=== PATIENT | female | born 1985 | race Caucasian/White ===

== ENCOUNTER 2021-01-03 15:07 | Observation (INO) | payer OTHER, SELFPAY ==
--- NOTE | ~2021-01-03 | CT_ITS ---
EXAMINATION: CT abdomen pelvis wo con DATE: 01/03/2021 16:40 INDICATION: Abdominal pain TECHNIQUE: Computed tomography (CT) of the abdomen and pelvis was performed without intravenous contr ast. The dose-length product was 952.89 mGy-cm. Automated exposure control and iterative reconstructi on technique were employed. COMPARISON: None. FINDINGS: Lung bases are unremarkable. Heart size normal. No significant pleural or pericardial effus ion. There is mild left perinephric and proximal periureteral edema. No obstructing stone or mass is identified. No significant hydronephrosis. Bladder is unremarkable. No significant vascular abnormali ty. No lymphadenopathy. The liver, spleen, pancreas, adrenal glands and right kidney are unremarkable. There is a wedge compr ession fracture of T12, likely chronic. IMPRESSION: 1. Mild left perinephric and periureteral edema, suspicious for ascending urinary tract infection/reilly lonephritis. No obstructing stone or mass identified. Reviewed, dictated and finalized at location A. IMPRESSION: 1. Mild left perinephric and periureteral edema, suspicious for ascending urina ry tract infection/pyelonephritis. No obstructing stone or mass identified.
[2021-01-03 15:23] VITALS: BP 142/94; PULSE 126; RESP 20; TEMP 37.5; O2SAT 98
[2021-01-03] MEDS: SODIUM CHLORIDE 0.9% IV 1,000 ML 999 ML IV CONT (15:56)
[2021-01-03] MEDS: KETOROLAC 30 MG/ML VIAL (*BKC) IV PUSH (15:57)
[2021-01-03] MEDS: PANTOPRAZOLE SODIUM IV 40 MG VIAL IV PUSH (15:57)
[2021-01-03] MEDS: ONDANSETRON INJ 4 MG/2 ML VIAL IV PUSH (15:57)
[2021-01-03 15:58] LABS: Add Urine Microscopic? YES; Appearance Urine Clear (Clear); Basophils Absolute Auto 0.07 K/mm3 (0.00-0.10); Basophils Percent Auto 0.4 % (0.0-1.0); Bilirubin Urine Negative (Negative); Blood Urine 3+ (Negative); Color Urine Yellow (Yellow); Eosinophils Absolute Auto 0.01 K/mm3 (0.02-0.50); Eosinophils Percent Auto 0.1 % (1.0-6.0); Glucose Urine UA Negative (Negative); Hematocrit 44.5 % (35.0-49.0); Hemoglobin 15.8 g/dL (12.0-15.0); Immature Granulocyte Absolute 0.13 K/mm3 (0.00-0.00); Immature Granulocyte Percent A 0.7 % (0.0-0.0); Ketones Urine 2+ (Negative); Leukocyte Esterase Ur 1+ (Negative); Lymphocytes Absolute Auto 1.11 K/mm3 (1.10-4.50); Lymphocytes Percent Auto 5.9 % (18.0-42.0); Mean Corpuscular HGB Conc 35.5 g/dL (32.0-36.0); Mean Corpuscular Hemoglobin 32.7 pg (27.0-31.0); Mean Corpuscular Volume 92.1 fL (78.0-102.0); Mean Platelet Volume 11.2 fl (9.2-11.8); Monocytes Absolute Auto 1.68 K/mm3 (0.10-0.90); Neutrophils Absolute Auto 15.7 K/mm3 (1.7-7.2); Neutrophils Percent Auto 83.9 % (50.0-70.0); Nitrate Urine Positive (Negative); Platelet Count Result 168 K/mm3 (150-420); Protein Urine 2+ (Negative); Red Blood Count 4.83 M/mm3 (4.20-5.40); Red Cell Distribution Width 11.2 % (11.6-14.4); Specific Grav Ur 1.025 (1.010-1.020); White Blood Count 18.7 K/mm3 (4.8-10.8)
[2021-01-03 16:18] LABS: WBC Urine >75 /hpf (0-3)
[2021-01-03 16:19] LABS: Bacteria Urine 3+ /hpf; Squamous Epithelial Cell Urine Few /hpf (Few)
[2021-01-03 16:20] LABS: Alanine Aminotransferase 26 U/L (14-59); Albumin Level 3.8 g/dL (3.4-5.0); Alkaline Phosphatase 55 U/L (46-116); Anion Gap 12 mmol/L (8-16); Aspartate Amino Transferase 12 U/L (15-37); Bilirubin,Total 1.6 mg/dL (0.00-1.00); Blood Urea Nitrogen 15 mg/dL (7-18); Calcium 8.7 mg/dL (8.5-10.1); Carbon Dioxide 25 mmol/L (21-32); Chloride 99 mmol/L (98-108); Estimated CRCL calculation 71 ml/min; Estimated Glomerular Filt Rate 55; Glucose 98 mg/dL (70-99); Lipase 63 U/L (73-393); Osmolality Calculated 282 mOsm/kg (285-295); Potassium 3.6 mmol/L (3.5-5.1); Sodium 136 mmol/L (136-145); Total Protein 7.3 g/dL (6.4-8.2)
[2021-01-03 16:22] LABS: Pregnancy On Board Control Positive; Urine Pregnancy Test Negative
[2021-01-03 16:26] LABS: Influenza Control Valid (Valid)
--- NOTE | 2021-01-03 16:45 | ED.ABDPAIN ---
HPI - Abdominal Pain General Chief Complaint: Abdominal Pain Stated Complaint: headache,fever,side pain Source: patient Mode of arrival: ambulatory Limitations: no limitations History of Present Illness HPI narrative: This is a 35-year-old female that presents with abdominal pain, epigastric and flank pain started about a day ago and is having some nausea and vomiting with no dysuria but does have some suprapubic tenderness with hesitancy with no hematuria has low-grade fever and chills with no chest pain no shortness of breath. MD elicited complaint: abdominal pain and flank pain Pertinent past history: none Onset (ago): day(s) Pain Consistency: constant Location: epigastric, L flank and R flank Severity: moderate Pain scale (0-10): 6 Quality: aching Radiation: L flank and R flank Migration to: no migration Exacerbating factors: nothing Relieving factors: nothing Associated symptoms: nausea and vomiting Related Data Home Medications Medication Instructions Recorded Confirmed No Home Medications 01/03/21 01/03/21 Allergies Allergy/AdvReac Type Severity Reaction Status Date / Time acetaminophen [From Vicodin] AdvReac Gastrointestinal Verified 01/03/21 15:27 Upset hydrocodone [From Vicodin] AdvReac Gastrointestinal Verified 01/03/21 15:27 Upset Review of Systems Review of Systems: All systems reviewed & are unremarkable except as noted in HPI and below PMFSH Past Medical History Medical History Patient denies medical problems Exam Const: General: no acute distress and alert Orientation/consciousness: patient oriented x3 HENMT: Head: normal to inspection and contusion Eyes: Conjunctivae: conjunctivae normal Pupils: Equal, round and reactive pupils present Chest: Chest palpation & inspection: normal inspection of the chest Resp: Effort & Inspection: normal respiratory effort Auscultation: clear to auscultation bilaterally Cardio: Rate: regular rate Rhythm: regular rhythm GI: GI Palp: Yes Soft to palpation and Yes Tenderness to palpation present (GI) : General: Yes CVA tenderness Urinary Catheter: Urinary Catheter: patent and draining Back/Spine/Pelvis: Back: CVA tenderness Skin: General skin exam: normal color Rashes: no rashes Neuro: General: patient oriented x3 and moves all extremities Extrem: General: normal to inspection and no pedal edema Psych: Mental Status: mental status grossly normal Affect: normal affect Attitude: cooperative Course Course Emergency Course: labs reviewed with patient does show that she has elevated white count with some urinalysis showing urinary tract infection, CT scan of her abdomen and pelvis reviewed with patient showing some perinephric edema consistent with pyelonephritis. Will give the patient a g of ceftriaxone. disposition admission to [facility] starting Condition guarded Admission diagnosis pyelonephritis Vital Signs Vital signs: Vital Signs Temperature 37.5 C 01/03/21 15:23 Pulse Rate 126 H 01/03/21 15:23 Respiratory Rate 20 01/03/21 15:23 Blood Pressure 142/94 H 01/03/21 15:23 Pulse Oximetry 98 01/03/21 15:23 Temperature 37.5 C 01/03/21 15:23 Pulse Rate 126 H 01/03/21 15:23 Respiratory Rate 20 01/03/21 15:23 Blood Pressure 142/94 H 01/03/21 15:23 Pulse Oximetry 98 01/03/21 15:23 MDM - Abdominal Pain Lab Data Result diagrams: 01/03/21 15:39 01/03/21 15:39 Labs: Lab Results 01/03/21 01/03/21 01/03/21 Range/Units 15:39 15:39 15:39 WBC 18.7 H (4.8-10.8) K/mm3 RBC 4.83 (4.20-5.40) M/mm3 Hgb 15.8 H (12.0-15.0) g/dL Hct 44.5 (35.0-49.0) % MCV 92.1 (78.0-102.0) fL MCH 32.7 H (27.0-31.0) pg MCHC 35.5 (32.0-36.0) g/dL RDW 11.2 L (11.6-14.4) % Plt Count 168 (150-420) K/mm3 MPV 11.2 (9.2-11.8) fl Immature Gran % (Auto) 0.7 H (0
[2021-01-03 16:58] LABS: SARS-CoV-2 RNA PCR Negative (Negative)
[2021-01-03 17:00] VITALS: BP 138/88; PULSE 110; RESP 20; O2SAT 99
[2021-01-03 17:40] VITALS: BP 112/70; PULSE 78; RESP 18; TEMP 36.6; O2SAT 95
[2021-01-03] MEDS: SODIUM CHLORIDE 0.9% IV 1,000 ML 100 ML IV CONT (17:46)
[2021-01-03 18:10] VITALS: BMI 35.5
[2021-01-03 20:00] VITALS: BP 103/67; PULSE 76; RESP 20; TEMP 36.6; O2SAT 98
[2021-01-03] MEDS: KETOROLAC 15 MG/ML VIAL (*BKC) IV PUSH (21:35)
--- NOTE | 2021-01-03 22:15 | PC.NURSE ---
Pain reassessment was completed after Ketoralac 15 mg was given for pain of 6/10. Patient was sleeping comfortably in her bed, with no signs of pain or discomfort. This corresponds to a pain rating of 0/10 on the FLACC scale.
[2021-01-04] VITALS (9 sets, daily range): BP systolic 105–128; BP diastolic 64–88; PULSE 67–83; RESP 17–20; TEMP 36–38.3; O2SAT 95–100
[2021-01-04] MEDS: ONDANSETRON INJ 4 MG/2 ML VIAL IV PUSH ×3 (02:36→20:57)
[2021-01-04] MEDS: SODIUM CHLORIDE 0.9% IV 1,000 ML 100 ML IV CONT ×3 (02:48→23:07)
[2021-01-04] MEDS: IBUPROFEN 600 MG TABLET (04:10)
[2021-01-04 05:21] LABS: Basophils Absolute Auto 0.06 K/mm3 (0.00-0.10); Basophils Percent Auto 0.4 % (0.0-1.0); Eosinophils Absolute Auto 0.02 K/mm3 (0.02-0.50); Eosinophils Percent Auto 0.1 % (1.0-6.0); Hematocrit 37.1 % (35.0-49.0); Hemoglobin 13.1 g/dL (12.0-15.0); Immature Granulocyte Absolute 0.12 K/mm3 (0.00-0.00); Immature Granulocyte Percent A 0.7 % (0.0-0.0); Lymphocytes Absolute Auto 1.01 K/mm3 (1.10-4.50); Lymphocytes Percent Auto 6.2 % (18.0-42.0); Mean Corpuscular HGB Conc 35.3 g/dL (32.0-36.0); Mean Corpuscular Hemoglobin 32.9 pg (27.0-31.0); Mean Corpuscular Volume 93.2 fL (78.0-102.0); Mean Platelet Volume 11.9 fl (9.2-11.8); Monocytes Absolute Auto 1.54 K/mm3 (0.10-0.90); Monocytes Percent Auto 9.5 % (2.0-11.0); Neutrophils Absolute Auto 13.5 K/mm3 (1.7-7.2); Neutrophils Percent Auto 83.1 % (50.0-70.0); Platelet Count Result 124 K/mm3 (150-420); Red Blood Count 3.98 M/mm3 (4.20-5.40); Red Cell Distribution Width 11.2 % (11.6-14.4); White Blood Count 16.2 K/mm3 (4.8-10.8)
[2021-01-04 05:36] LABS: Alanine Aminotransferase 20 U/L (14-59); Albumin Level 2.9 g/dL (3.4-5.0); Alkaline Phosphatase 46 U/L (46-116); Anion Gap 13 mmol/L (8-16); Aspartate Amino Transferase < 10 U/L (15-37); Bilirubin,Total 1.1 mg/dL (0.00-1.00); Blood Urea Nitrogen 14 mg/dL (7-18); Calcium 7.8 mg/dL (8.5-10.1); Carbon Dioxide 23 mmol/L (21-32); Chloride 101 mmol/L (98-108); Estimated CRCL calculation 85 ml/min; Estimated Glomerular Filt Rate > 60; Glucose 107 mg/dL (70-99); Osmolality Calculated 284 mOsm/kg (285-295); Potassium 3.6 mmol/L (3.5-5.1); Sodium 137 mmol/L (136-145); Total Protein 5.9 g/dL (6.4-8.2)
[2021-01-04] MEDS: ACETAMINOPHEN 325 MG TABLET 650 MG PO ×2 (09:48→18:05)
--- NOTE | 2021-01-04 11:41 | PM.IMHP ---
H&P: HPI History of Present Illness Date/Time: 01/04/21 11:41 Christa Hurt is a 35 year old female admitted under Observation for Pyelonephritis. Pt states symptoms started about 1-2 days ago with Nausea and flank pain which has resolved. Pt did have a fever this AM. Pt states she does have a little head ache this AM. She claims her appetite is ok and does not feel like eating this AM. Pt states she is feeling good enough to go home however d/t the 101`F temp this AM we will keep her overnight and likely DC home tomorrow provided no more fevers or condition changes that would warrant keeping her in house longer. <ANA MARIA Dawkins - Last Filed: 01/04/21 12:34> Chief Complaint: Abdominal Pain <ANA MARIA Dawkins - Last Filed: 01/04/21 12:34> Review of Systems Review of Systems: All systems reviewed & are unremarkable except as noted in HPI and below <ANA MARIA Dawkins - Last Filed: 01/04/21 12:34> [facility] Past Medical History Medical History: Medical History Patient denies medical problems <ANA MARIA Dawkins - Last Filed: 01/04/21 12:34> Social History Social History: Social History Smoking status: Never smoker Spiritual care concerns: No <ANA MARIA Dawkins - Last Filed: 01/04/21 12:34> Meds Home Medications and Allergies Home medications: Home Medications Medication Instructions Recorded Confirmed Type No Home Medications 01/03/21 01/03/21 History <ANA MARIA Dawkins - Last Filed: 01/04/21 12:34> Allergies/Adverse reactions: Allergies Allergy/AdvReac Type Severity Reaction Status Date / Time hydrocodone [From Vicodin] AdvReac Gastrointestinal Verified 01/03/21 15:27 Upset <ANA MARIA Dawkins - Last Filed: 01/04/21 12:34> Vital Signs Vital Signs - 24 hr 01/03/21 15:23 01/03/21 17:00 01/03/21 17:40 Temperature 99.5 F 97.8 F Pulse Rate 126 H 110 H 78 Respiratory Rate 20 20 18 Blood Pressure 142/94 H 138/88 112/70 Pulse Oximetry 98 99 95 01/03/21 20:00 01/04/21 00:00 01/04/21 03:55 Temperature 97.8 F 98.3 F 101 F H Pulse Rate 76 83 83 Respiratory Rate 20 20 20 Blood Pressure 103/67 105/64 108/67 Pulse Oximetry 98 95 96 01/04/21 05:52 01/04/21 08:00 Temperature 98.2 F 96.9 F L Pulse Rate 75 Respiratory Rate 17 Blood Pressure 109/81 Pulse Oximetry 100 <ANA MARIA Dawkins - Last Filed: 01/04/21 12:34> Exam Const: General: cooperative, healthy appearing, comfortable, no acute distress, well developed, alert, awake, Physically active and tired appearing <ANA MARIA Dawkins - Last Filed: 01/04/21 12:34> Nutritional Appearance: obese <SEEMA DawkinsC - Last Filed: 01/04/21 12:34> Resp: Effort & Inspection: normal respiratory effort <ANA MARIA Dawkins - Last Filed: 01/04/21 12:34> Auscultation: clear to auscultation bilaterally <ANA MARIA Dawkins - Last Filed: 01/04/21 12:34> Cardio: Jugular venous distension: no JVD <ANA MARIA Dawkins - Last Filed: 01/04/21 12:34> Rate: regular rate <ANA MARIA Dawkins - Last Filed: 01/04/21 12:34> Heart sounds: S1 normal heart sound present and S2 normal heart sound present <ANA MARIA Dawkins - Last Filed: 01/04/21 12:34> GI: GI Palp: Yes Soft to palpation and No Tenderness to palpation present (GI) <ANA MARIA Dawkins - Last Filed: 01/04/21 12:34> Auscultation: normal bowel sounds <ANA MARIA Dawkins - Last Filed: 01/04/21 12:34> Back/Spine/Pelvis: Back: no CVA tenderness and No back tenderness <ANA MARIA Dawkins - Last Filed: 01/04/21 12:34> Skin: General skin exam: normal color and dry skin <ANA MARIA Dawkins - Last Filed: 01/04/21 12:34> Neuro: General: oriented to person, oriented to place, oriented to time and CN's II-XI intact bilaterally (grossly intact) <Maulik Cisneros,
[2021-01-04] MEDS: KETOROLAC 15 MG/ML VIAL (*BKC) IV PUSH ×2 (15:43→22:17)
--- NOTE | 2021-01-04 19:00 | PC.NURSE ---
Completed bedside change of shift report and updated board. Patient stated that she is still feeling lousy , and that she wanted to take a shower, but didn't have the energy. When asked about a bed bath, she stated that she would rather wait and shower tomorrow. Patient stated that she was able to enjoy eating jello for dinner, and that was the first thing that tasted good. Patient was reminded that she could have more jello whenever she wanted. Patient was resting comfortably in bed, with no signs of pain or discomfort.
--- NOTE | 2021-01-04 22:04 | PC.NURSE ---
Patient rounding completed. Patient is sleeping comfortably in bed, with no signs of pain or discomfort.
[2021-01-05] VITALS: BP 114/69; PULSE 78; RESP 18; TEMP 36.6; O2SAT 97
[2021-01-05] MEDS: ACETAMINOPHEN 325 MG TABLET 650 MG PO ×2 (00:39→08:20)
--- NOTE | 2021-01-05 02:00 | PC.NURSE ---
Completed patient rounding. Patient is sleeping comfortably in bed, with no signs of pain or discomfort.
[2021-01-05 04:00] VITALS: BP 120/75; PULSE 70; RESP 18; TEMP 36.3; O2SAT 99
[2021-01-05 05:29] LABS: Hematocrit 35.3 % (35.0-49.0); Hemoglobin 12.5 g/dL (12.0-15.0); Immature Platelet Fraction Pct 5.9 % (1.0-7.0); Mean Corpuscular HGB Conc 35.4 g/dL (32.0-36.0); Mean Corpuscular Hemoglobin 33.1 pg (27.0-31.0); Mean Corpuscular Volume 93.4 fL (78.0-102.0); Mean Platelet Volume 12.1 fl (9.2-11.8); Platelet Count Result 121 K/mm3 (150-420); Red Blood Count 3.78 M/mm3 (4.20-5.40); Red Cell Distribution Width 11.2 % (11.6-14.4); White Blood Count 10.9 K/mm3 (4.8-10.8)
[2021-01-05 05:30] LABS: Anion Gap 12 mmol/L (8-16); Blood Urea Nitrogen 11 mg/dL (7-18); Calcium 7.9 mg/dL (8.5-10.1); Carbon Dioxide 24 mmol/L (21-32); Chloride 104 mmol/L (98-108); Estimated CRCL calculation 86 ml/min; Estimated Glomerular Filt Rate > 60; Glucose 80 mg/dL (70-99); Osmolality Calculated 288 mOsm/kg (285-295); Potassium 3.3 mmol/L (3.5-5.1); Sodium 140 mmol/L (136-145)
--- NOTE | 2021-01-05 06:41 | PC.NURSE ---
Patient asked to take a shower. IV was wrapped, and patient was given towels, washcloths, and body wash. Patient is feeling much better than earlier last night. Headache is gone, nausea is under control.
[2021-01-05 07:35] VITALS: BP 121/67; PULSE 75; RESP 18; TEMP 36.3; O2SAT 98
--- NOTE | 2021-01-05 07:36 | PM.DS ---
DS: Admitting Diagnosis Discharge Date 01/05/2021 Admitting Diagnosis Pyelonephritis DS: Discharge Diagnosis Discharge Diagnosis (1) Pyelonephritis: Code(s): N12 - Tubulo-interstitial nephritis, not specified as acute or chronic Status: Acute Assessment and Plan: IMPRESSION: 1. Mild left perinephric and periureteral edema, suspicious for ascending urinary tract infection/pyelonephritis. No obstructing stone or mass identified. IVF NS 100/h, Rocephin 01/05/2021 Renal function is WNL, will DC home with 3 more days Ab, Pt has no abdominal pain, no flank pain, no dysuria, no back pain (2) Fever: Code(s): R50.9 - Fever, unspecified Status: Acute Assessment and Plan: Tylenol or Motrin, Fever was 101`F now 96.9`F 01/05/2021 No fever over the last 24`s DS: Summary Hospital Course Hospital Course: Pt received 3 doses of Rocephin, her appetite has returned and states she is ready for a burger after DC to home, no UTI symptoms. Time Spent with Patient Time attestation: Total time spent providing and/or coordinating discharge services: < 30 minutes Exam Const: General: cooperative, healthy appearing, comfortable, no acute distress, well developed, alert, awake and Physically active Nutritional Appearance: obese Resp: Effort & Inspection: normal respiratory effort Auscultation: clear to auscultation bilaterally Cardio: Rate: regular rate Heart sounds: S1 normal heart sound present and S2 normal heart sound present Skin: General skin exam: normal color and dry skin Neuro: General: oriented to person, oriented to place and oriented to time Cranial nerves: Yes CN's II-XII intact bilaterally (grossly intact) Extrem: General: full ROM and no pedal edema Psych: Appearance: grossly normal Mental Status: mental status grossly normal Speech and movement: Normal speech and movement present Affect: normal affect Attitude: cooperative Thought process: Normal thought process present DS: Data Data Completed and Pending Labs on day of discharge: Labs from last 24 hours 01/05/21 01/05/21 05:03 05:03 WBC 10.9 H RBC 3.78 L Hgb 12.5 Hct 35.3 MCV 93.4 MCH 33.1 H MCHC 35.4 RDW 11.2 L Plt Count 121 L MPV 12.1 H % Immature Plt Fraction 5.9 Sodium 140 Potassium 3.3 L Chloride 104 Carbon Dioxide 24 Anion Gap 12 BUN 11 Creatinine 0.93 Estim Creat Clear Calc 86 Estimated GFR > 60 Glucose 80 Calculated Osmolality 288 Calcium 7.9 L Discharge Plan Discharge Attending physician on discharge: Hector Samspon Discharging Clinician: Maulik Cisneros Anticipated Discharge Date/Time: 01/05/21 10:30 Patient Disposition: Home, Self-Care Activity: as tolerated Diet: heart healthy Discharge Instructions: You will have 3 days of Antibiotic to complete. The script was sent to your pharmacy of choice. Patient Instructions: Antibiotic Form, Sulfamethoxazole/Trimethoprim (By mouth), Clear Liquid Diet (DC), Diet for Stomach Ulcers and Gastritis (GEN), Kidney Infection (GEN), Full Liquid Diet (DC) Stand Alone Forms: General Discharge Information Follow-up/Referrals: Kiran,Ananya Morocho, MUTUEL CLERK [Non-Staff] - 01/12/21 10:00 am Discharge Medications: New sulfamethoxazole-trimethoprim [Bactrim DS] 800-160 mg tablet 1 tablet PO Q12H Qty: 6 RF: 0 Continued No Home Medications RF: 0 Date of admission: 01/03/21 17:04 Primary Care Provider: UNKNOWN,DOCTOR Admitting Provider: Hector Sampson Attending physician on admission: Hector Sampson Condition: Improved
[2021-01-05] MEDS: POTASSIUM CHLORIDE 20 MEQ TABLET 40 MEQ PO (08:20)
--- NOTE | 2021-01-05 11:36 | PC.NURSE ---
Discharge instructions reviewed with patient and mother, both verbalized understanding. Patient ambulated from floor
--- NOTE | 2021-01-06 15:26 | PC.NURSE ---
Pt states she received and understood her discharge instructions. Pt has no other comments.
== END 2021-01-05 11:15 | disposition home or self-care (01) ==
LOC: CHSED 16:54 → CHS2ND 17:04
PROVIDERS: Nurse Practitioner Family; Admitting Provider Emergency Medicine; Emergency Provider Emergency Medicine; Visit Provider Emergency Medicine
DX: N10 Acute pyelonephritis (principal); Z20.822 Contact with and (suspected) exposure to COVID-19
CPT/HCPCS: 36415; 74176; 80048; 80053; 81001; 81025; 83690; 85025; 85027; 85055; 87077; 87086; 87088; 87186; 87804; 96360; 96361; 96365; 96375; 96376; 99285; A9270; C9113; C9803; G0378; J0696; J1885; J2405; J7030; U0003; U0005